=== PATIENT | female | born 2000 | race Native Hawaiian/Other Pacific Islander ===

== ENCOUNTER 2021-11-20 10:29 | Inpatient (IN) | payer SELFPAY ==
[2021-11-20] MEDS ORDERED: LACTATED RINGERS 1,000 ML IV ONE (12:51)
[2021-11-20 13:27] LABS: Basophils % (Auto) 0.2 % (0.0-1.8); Eosinophils # (Auto) 0.1 K/mm3 (0.0-0.4); Eosinophils % (Auto) 0.7 % (0.0-4.3); Hematocrit 35.2 % (30.3-42.9); Hemoglobin 11.1 gm/dl (10.1-14.3); Lymphocytes # (Auto) 1.6 K/mm3 (1.2-5.4); Lymphocytes % (Auto) 22.8 % (13.4-35.0); Mean Corpuscular HGB Conc 31 % (30-34); Mean Corpuscular Volume 82 fl (79-97); Monocytes # (Auto) 0.4 K/mm3 (0.0-0.8); Monocytes % (Auto) 5.9 % (0.0-7.3); Platelet Count 242 K/mm3 (140-440); Red Blood Count 4.28 M/mm3 (3.65-5.03); Red Cell Distribution Width 14.7 % (13.2-15.2)
[2021-11-20] MEDS ORDERED: BICITRA ORAL LIQD 30ML PO ONE (13:55)
[2021-11-20] MEDS ORDERED: METOCLOPRAMIDE 10 MG/2 ML INJ IV ONE (13:55)
[2021-11-20] MEDS ORDERED: FAMOTIDINE 20 MG/2 ML INJ IV ONE (13:55)
[2021-11-20] MEDS ORDERED: LACTATED RINGERS 1,000 ML IV SCH ×2 (14:00→17:30)
[2021-11-20] MEDS ORDERED: OXYTOCIN DRIP 30 UNITS/500 ML BAG IV SCH ×2 (14:00→23:45)
[2021-11-20] MEDS ORDERED: BUPIVACAINE /DEX-WATER 0.75% (2 ML) AMPULE INFILTRATI ONE (17:23)
--- NOTE | 2021-11-20 17:34 | Anesthesia Day of Surgery ---
Anesthesia Day of Surgery - Day of Surgery Patient Examined: Yes Patient H&P Reviewed: Yes Patient is NPO: Yes Beta Blockers: No Cardiac Clearance: No Pulmonary Clearance: No Myles's Test: Negative
--- NOTE | 2021-11-20 17:42 | Anesthesia Consultation ---
Anesthesia Consult and Med Hx Date of service: 11/20/21 - Airway Anesthetic Teeth Evaluation: Poor ROM Head & Neck: Adequate Mental/Hyoid Distance: Adequate Mallampati Class: Class II Intubation Access Assessment: Probably Good - Pulmonary Exam CTA: Yes - Pre-Operative Health Status ASA Pre-Surgery Classification: ASA3 Proposed Anesthetic Plan: Epidural, Spinal - Pulmonary Hx Smoking: No Hx Asthma: No Hx Respiratory Symptoms: No SOB: No COPD: No Home Oxygen Therapy: No Hx Pneumonia: No Hx Sleep Apnea: No - Cardiovascular System Hx Hypertension: No Hx Coronary Artery Disease: No Hx Heart Attack/AMI: No Hx Angina: No Hx Percutaneous Transluminal Coronary Angioplasty (PTCA): No Hx Cardia Arrhythmia: No Hx Pacemaker: No Hx Internal Defibrillator: No Hx Valvular Heart Disease: No Hx Heart Murmur: No Hx Peripheral Vascular Disease: No - Central Nervous System Hx Neuromuscular Disorder: No Hx Seizures: No CVA: No Hx Back Pain: No Hx Psychiatric Problems: No - Gastrointestinal Hx Ulcer: No Hx Gastroesophageal Reflux Disease: Yes - Endocrine Hx Renal Disease: No Hx End Stage Renal Disease: No Hx Cirrhosis: No Hx Liver Disease: No Hx Insulin Dependent Diabetes: No Hx Non-Insulin Dependent Diabetes: No Hx Thyroid Disease: No Hx Hypothyroidism: No Hx Hyperthyroidism: No - Hematic Hx Anemia: No Hx Sickle Cell Disease: No - Other Systems Hx Alcohol Use: No Hx Substance Use: No Hx Cancer: No Hx Obesity: No
[2021-11-20] MEDS ORDERED: ceFAZolin/Water 2 GM/20 ML 2 GM/20 ML SYRINGE IV NR (18:00)
--- NOTE | 2021-11-20 18:18 | History and Physical Report ---
History of Present Illness Date of examination: 11/20/21 Date of admission: 11/20/21 14:47 Chief complaint: low fluid in clinic by u/sound History of present illness: at 37.6wks by LMP c/w U/Sound. care at [facility]. pt seen in clinic today and denies LOF however her u/sound with DAMARIS 4.1cm today and BPP 6/8. labs O positive, antibody neg, rubella immune, VDRL non-reactive, HIV neg and HepBsAg; GC/Chlam negative. Normal 1hrgtt. Past History Past Medical History: no pertinent history Past Surgical History: section (x2) Family/Genetic History: none Social history: no significant social history - Obstetrical History Expected Date of Delivery: 12/05/21 Actual Gestation: 37 Week(s) 6 Day(s) : 3 Hx # Term Pregnancies: 2 Number of Living Children: 2 Medications and Allergies Allergies Allergy/AdvReac Type Severity Reaction Status Date / Time No Known Allergies Allergy Verified 11/20/21 11:04 Active Meds: Active Medications Lactated Ringer's (Lactated Ringers) 1,000 mls @ 2,250 mls/hr IV PREOP COCO Stop: 11/21/21 14:27 Oxytocin/Sodium Chloride (Pitocin/Ns 30 Unit/500ml) 30 units in 500 mls @ 0 mls/hr IV TITR COCO; Protocol Lactated Ringer's (Lactated Ringers) 1,000 mls @ 2,250 mls/hr IV PREOP COCO Stop: 11/21/21 17:57 Cefazolin Sodium (Ancef/Sterile Water 2 Gm/20 Ml) 2 gm in 20 mls @ 80 mls/hr IV PREOP NR; Protocol Stop: 11/20/21 23:59 Review of Systems All systems: negative (oligo on u/s) - Vital Signs Vital signs: Vital Signs Temp Pulse Resp BP Pulse Ox 98.1 F 102 H 18 110/68 99 11/20/21 10:58 11/20/21 10:58 11/20/21 10:58 11/20/21 10:58 11/20/21 10:58 Temp Pulse Resp BP Pulse Ox 99.2 F 96 H 16 115/68 98 11/20/21 17:35 11/20/21 17:42 11/20/21 17:35 11/20/21 17:35 11/20/21 17:42 - Physical Exam Breasts: Positive: deferred Cardiovascular: Regular rate Lungs: Positive: Normal air movement Genitourinary (Female): Positive: normal external genitalia Uterus: Positive: normal size Extremities: Positive: normal - Obstetrical FHR: category 1 Uterine Contraction Monitor Mode: External Uterine Contraction Pattern: Absent Results Result Diagrams: 11/20/21 12:35 Abnormal lab results 11/20/21 Range/Units 12:35 MCH 26 L (28-32) pg Seg Neutrophils % 70.4 H (40.0-70.0) % All other labs normal. Assessment and Plan Term IUP at 37.6wks with Oligohydramnios; H/O C/Section x2 1. Admit to labor and delivery for repeat section 2. Will check ROM plus 3. Anesthesia and NICU notified
[2021-11-20] MEDS ORDERED: ceFAZolin/STERILE WATER 2 GM/20 ML SYRINGE IV ONE (20:44)
[2021-11-20] MEDS ORDERED: PHENYLEPHRINE/NS 1,000 MCG/10 ML SYRINGE (OR USE) IV ONE (21:29)
[2021-11-20] MEDS ORDERED: BUPIVACAINE/PF (0.25%) 2.5 MG/ML 30 ML VIAL INFILTRATI ONE (22:00)
[2021-11-20] MEDS ORDERED: dexAMETHasone 20 MG/5 ML VIAL ONE (22:03)
[2021-11-20] MEDS ORDERED: IBUPROFEN 600 MG TAB PO PRN (23:58)
[2021-11-20] MEDS ORDERED: HYDROCORTISONE 25 MG RECTAL SUPP PR PRN (23:58)
[2021-11-20] MEDS ORDERED: MORPHINE 4 MG/1 ML INJ IV PRN (23:58)
[2021-11-20] MEDS ORDERED: SIMETHICONE 80 MG CHEW TAB PO PRN (23:58)
[2021-11-20] MEDS ORDERED: MAGNESIUM HYDROXIDE (MOM) ORAL LIQD UDC PO PRN (23:58)
[2021-11-20] MEDS ORDERED: ONDANSETRON 4 MG/2 ML INJ IV PRN (23:58)
[2021-11-20] MEDS ORDERED: oxyCODONE /ACETAMINOPHEN 5-325MG TAB PO PRN (23:58)
[2021-11-20] MEDS ORDERED: PROMETHAZINE 25 MG RECT SUPP PR PRN (23:58)
[2021-11-20] MEDS ORDERED: ACETAMINOPHEN 325 MG TAB PO PRN (23:58)
[2021-11-20] MEDS ORDERED: SENNOSIDES 8.6 MG TAB PO PRN (23:58)
[2021-11-20] MEDS ORDERED: LANOLIN/ZINC/DIMETHICONE (LANSINOH) 7 GM TP PRN (23:58)
[2021-11-20] MEDS ORDERED: WITCH HAZEL/ GLYCERIN PAD TP PRN (23:58)
[2021-11-20] MEDS ORDERED: NALOXONE 0.4 MG/1 ML INJ IV PRN (23:58)
--- NOTE | 2021-11-21 00:03 | Procedure Note ---
OB Delivery Note - Delivery Date of Delivery: 11/20/21 Surgeon: ANNABELLE BUTTERFIELD Tank Wagon Driver: MATEO LOPEZ Estimated blood loss: other (802cc) - Section Preop diagnosis: repeat , other (Oligohydramnios) Postop diagnosis: same section procedure: repeat low transverse (midline skin scar per pt choice) Disposition: floor Complications: none Narrative: Date: 11/20/20 Surgeon: Annabelle Butterfield MD Asst: Dr. Lopez Preop Dx: IUP at 37.6wks, previous c/section x2 with midline scar, Oligohydramnios Postop Dx: same Procedure : Repeat Low tranverse c/section thru midline skin scar Anesthesia: spinal/epidural Intake: 2600cc crystalloids Output:200cc EBL: 802cc After the risks, benefits and alternatives of procedure discussed, patient signed consents and was taken to the operating room. Pt was given spinal/epidural anesthesia. After same was adequate, patient was prepped and draped in the usual sterile fashion. Naqvi catheter in place and draining clear urine. Pt was given prophylactic antibiotic per protocol and time out was done Midline ellliptical incision done by Dr. Lopez and previous scar tissue removed. Both side of this incision tented upward and sharp dissection down to the fascia that incised in the midline and extended upwards and downwards to the extent of the previous scar. The peritoneum was entered sharply and same was extended with good visualization of the bladder. The sammie retractor was placed. The bladder flap was created sharply using metzenbaum scissors. Lower uterine segment then entered transversely and amniotic sac entered using allys clamps. Uterine incision extended using bandage scissors. Infant delivered, bulb suctioned, cord clamped and baby handed to waiting pediatricians. Placenta then delivered completely and uterine cavity cleared of all clots and debri. The uterus was not exteriorized and closed in 2 layers using [0-vicryl] suture in a running locked fashion and then an additional layer of imbrication suture. Surgicel powder placed and Excellent hemostasis noted. The gutters were cleared of clots and debri and anterior peritoneum closed using 3-0 vicryl suture. The rectus muscle was included as the midline fascia was closed using 0-PDS suture in a running fashion. The subcutaneous tissue copiously irrigated with normal saline and re-approximated using 3-0 vicryl suture. Excellent hemostasis remains. The skin was reapproximated with interrupted 3-0 vicryl suture then above with continuous suture using 4-0 monocryl in a subcuticular fashion. Dermabond placed above. Sponge, lap, instrument and needle counts x2 were normal. Patient tolerated the procedure we ll and was taken to recovery room stable. Findings: Viable female , APGARS 8/9 and weight 2490g. Normal uterus, tubes and ovaries. - Infant A at 1 minute: 8 at 5 minutes: 9 Infant Gender: Female (wt 2490g; clear amniotic fluid)
--- NOTE | 2021-11-21 00:12 | Progress Note ---
Spinal Anesthesia Block - Spinal Anesthesia Block Start Time: 20:46 Stop Time: 20:49 Performed by:: SOLO HAMM Procedure: Patient is requesting epidural for labor pain. H&P and labs reviewed. Procedure explained, questions answered, consent obtained. Patient placed in sitting position with monitors applied. Timeout performed immediately before start of procedure. Prep/drape in usual sterile fashion. Skin localized 3 mL 1% lidocaine at L[2]-L[3] interspace. 17-gauge Tuohy epidural needle advanced to ENRIQUE with saline at [4] cm. No blood/CSF noted via epidural needle. 25g spinal needle advanced into intrathecal space until clear, free flowing CSF noted. 1.4ml 0.75% hyperbaric bupivacaine + 10mcg Precedex sterile saline injected into intrathecal space. Spinal needle removed and epidural catheter advanced to [10] cm. Negative aspiration for blood and CSF via catheter, negative response to test dose 3 ml 1.5% lidocaine w/ epi. Sterile dressing applied followed by tape reinforcement. Patient tolerated procedure well. No immediate complications noted.
--- NOTE | 2021-11-21 00:14 | Progress Note ---
Regional Anesthesia Block - Regional Anesthesia Block Start Time: 23:50 Stop Time: 23:52 Performed By:: SOLO HAMM Procedure: Patient consented for TAP block for post surgical pain management. Patient identified, monitors placed, and time out performed. TAP identified bilaterally via ultrasound. Skin prepped bilaterally with [chlorhexidine] and [22g stimuplex] needle advanced to the TAP. [Marcaine 0.25% 30ml] injected under ultrasound guidance on the [left] side. [Marcaine 0.25% 30ml] injected under ultrasound guidance on the [right] side. Negative aspiration every 5mL, No change in heart rate or rhythm. Patient tolerated the procedure well. No apparent complications seen.
--- NOTE | 2021-11-21 00:16 | Post Anesthesia Evaluation ---
- Post Anesthesia Evaluation Patient Participated: Yes Airway Patent: Yes Stable Respiratory Function: Yes Nausea/Vomiting: No Temp > 96.8F: Yes Pain Manageable: Yes Adequeate Hydration: Yes Anesthesia Complications: No Block Receding Appropriately: Yes Patient on Ventilator: No
[2021-11-21] MEDS ORDERED: MORPHINE 4 MG/1 ML INJ IV PRN (01:32)
[2021-11-21] MEDS ORDERED: MAGNESIUM HYDROXIDE (MOM) ORAL LIQD UDC PO PRN (01:32)
[2021-11-21] MEDS ORDERED: PROMETHAZINE 25 MG RECT SUPP PR PRN (01:32)
[2021-11-21] MEDS ORDERED: LANOLIN/ZINC/DIMETHICONE (LANSINOH) 7 GM TP PRN (01:32)
[2021-11-21] MEDS ORDERED: WITCH HAZEL/ GLYCERIN PAD TP PRN (01:32)
[2021-11-21] MEDS ORDERED: HYDROCORTISONE 25 MG RECTAL SUPP PR PRN (01:32)
[2021-11-21] MEDS ORDERED: ONDANSETRON 4 MG/2 ML INJ IV PRN (01:32)
[2021-11-21] MEDS ORDERED: SIMETHICONE 80 MG CHEW TAB PO PRN (01:32)
[2021-11-21] MEDS ORDERED: SENNOSIDES 8.6 MG TAB PO PRN (01:32)
[2021-11-21] MEDS ORDERED: NALOXONE 0.4 MG/1 ML INJ IV PRN (01:32)
[2021-11-21] MEDS ORDERED: OXYTOCIN DRIP 30 UNITS/500 ML BAG IV SCH (01:32)
[2021-11-21] MEDS ORDERED: IBUPROFEN 600 MG TAB PO PRN (01:32)
[2021-11-21] MEDS: oxyCODONE /ACETAMINOPHEN 5-325MG TAB PO PRN ×4 (03:53→22:52)
[2021-11-21] MEDS ORDERED: PRENATAL VIT27-FE FUMARATE-FOLIC ACID VIT TAB PO SCH (10:00)
[2021-11-21] MEDS ORDERED: FERROUS SULFATE 325 MG TAB PO SCH (10:00)
[2021-11-21] MEDS: FERROUS SULFATE 325 MG TAB PO SCH (10:38)
[2021-11-21] MEDS: PRENATAL VIT27-FE FUMARATE-FOLIC ACID VIT TAB PO SCH (10:38)
--- NOTE | 2021-11-21 10:52 | Progress Note ---
Assessment and Plan A: /postop day 1 S/P repeat section. P: Continue routine /postop care. Coronavirus test pending. Encouraged patient to ambulate today. Subjective - Subjective Date of service: 11/21/21 Principal diagnosis: /postop day 1 S/P repeat C/S Interval history: Has not been out of bed yet. Naqvi catheter in place draining well. No flatus yet. Patient reports: no nauseated : doing well Objective - Vital Signs Latest vital signs: Vital Signs Temp Pulse Resp BP BP Pulse Ox Pulse Ox 11/21/21 08:01 97.7 F 54 L 17 113/68 98 11/21/21 03:54 98.5 F 59 L 18 115/69 97 11/21/21 01:10 98.3 F 70 20 114/68 98 98 11/21/21 01:00 99.1 F 80 14 115/69 97 11/21/21 00:45 74 14 124/72 11/21/21 00:30 74 14 124/72 11/21/21 00:22 81 98 11/21/21 00:17 78 100 11/21/21 00:15 75 14 116/70 11/21/21 00:13 78 118/74 11/21/21 00:12 73 100 11/21/21 00:10 78 14 114/78 11/21/21 00:05 82 16 128/74 11/21/21 00:00 99.1 F 76 14 132/74 11/20/21 18:23 89 98 11/20/21 17:42 96 H 98 11/20/21 17:37 82 99 11/20/21 17:35 99.2 F 82 16 115/68 98 11/20/21 17:32 85 99 11/20/21 17:30 93 H 115/68 11/20/21 17:27 88 98 11/20/21 17:22 77 98 11/20/21 17:17 80 97 11/20/21 17:12 71 98 11/20/21 17:07 82 99 11/20/21 17:02 82 98 11/20/21 16:57 79 97 11/20/21 16:52 77 98 11/20/21 16:47 70 99 11/20/21 16:42 77 99 11/20/21 16:37 80 98 11/20/21 16:32 77 98 11/20/21 16:27 76 98 11/20/21 16:22 78 97 11/20/21 16:17 77 98 11/20/21 16:12 88 98 11/20/21 16:07 85 98 11/20/21 16:02 80 98 11/20/21 15:53 85 97 11/20/21 15:48 78 97 11/20/21 15:43 82 99 11/20/21 15:38 73 98 11/20/21 15:33 71 99 11/20/21 15:28 77 98 11/20/21 15:23 78 98 11/20/21 15:18 74 98 11/20/21 15:13 75 89 11/20/21 15:08 78 100 11/20/21 15:04 99 11/20/21 15:03 81 99 11/20/21 14:58 82 87 11/20/21 14:52 69 98 11/20/21 14:47 77 99 11/20/21 14:42 91 H 97 11/20/21 14:37 71 97 11/20/21 14:32 86 99 11/20/21 14:27 88 98 11/20/21 14:22 74 97 11/20/21 14:17 71 98 11/20/21 14:12 82 97 11/20/21 14:07 96 H 97 11/20/21 14:02 88 98 11/20/21 13:57 69 98 11/20/21 13:52 74 98 11/20/21 13:47 77 98 11/20/21 13:43 91 H 94 11/20/21 13:42 98 11/20/21 13:37 79 98 11/20/21 12:08 92 H 99 11/20/21 12:03 83 98 11/20/21 11:58 85 99 11/20/21 11:53 82 98 11/20/21 11:48 86 99 11/20/21 11:43 94 H 98 11/20/21 11:38 81 98 11/20/21 11:33 95 H 98 11/20/21 11:28 84 98 11/20/21 11:23 96 H 98 11/20/21 11:18 92 H 99 11/20/21 11:13 92 H 98 11/20/21 11:08 91 H 99 11/20/21 11:03 93 H 98 11/20/21 10:58 98.1 F 96 H 18 110/68 110/68 99 Intake and Output 11/20/21 11/21/21 11/21/21 23:59 07:59 15:59 Intake Total 2600 240 240 Output Total 200 300 Balance 2400 -60 240 Intake: IV 2600 Oral 240 Intake, Free Water 240 Output: Urine 200 300 Indwelling Catheter 300 Other: Total, Intake Amount 240 Total, Output Amount 300 # Voids Indwelling Catheter 1 - Exam Cardiovascular: Present: Regular rate Lungs: Present: Clear to auscultation Abdomen: Present: normal appearance, soft, other (+ bowel sounds). Absent: distention, tenderness, guarding, rigidity Uterus: Present: normal, firm, fundal height below umbilicus. Absent: bogginess, tenderness Extremities: Absent: tenderness, edema Incision: Present: dry, intact - Labs Labs: Abnormal lab results 11/20/21 Range/Units 12:35 MCH 26 L (28-32) pg Seg Neutrophils % 70.4 H (40.0-70.0) %
[2021-11-21 11:59] LABS: Hematocrit 32.4 % (30.3-42.9); Hemoglobin 10.1 gm/dl (10.1-14.3)
[2021-11-22] MEDS: oxyCODONE /ACETAMINOPHEN 5-325MG TAB PO PRN ×2 (06:01→11:02)
[2021-11-22] MEDS: PRENATAL VIT27-FE FUMARATE-FOLIC ACID VIT TAB PO SCH (10:58)
[2021-11-22] MEDS: FERROUS SULFATE 325 MG TAB PO SCH (10:59)
--- NOTE | 2021-11-22 11:30 | Progress Note ---
Subjective - Subjective Date of service: 11/22/21 Principal diagnosis: /postop day 2 S/P repeat C/S Interval history: PE benign incision c/d/i continue routine postop care Enrrique Oliva MD Patient reports: appetite normal, voiding normally, pain well controlled, ambulating normally : doing well Objective - Vital Signs Latest vital signs: Vital Signs Temp Pulse Resp BP BP Pulse Ox Pulse Ox 11/22/21 09:13 97.6 F 89 20 104/71 99 11/22/21 05:46 98.1 F 62 18 125/73 99 11/22/21 00:19 98.0 F 64 18 117/66 100 11/21/21 22:00 97 11/21/21 20:51 98.1 F 66 18 100/60 100/60 98 11/21/21 20:05 98 11/21/21 17:14 97.7 F 62 19 105/61 96 11/21/21 13:28 97.8 F 63 17 108/69 96 Intake and Output 11/21/21 11/22/21 11/22/21 23:59 07:59 15:59 Intake Total 120 240 Output Total 1500 500 Balance -1380 -260 Intake: Oral 120 240 Output: Urine 1500 500 Indwelling Catheter 600 Void 900 500 Other: Total, Intake Amount 120 120 Total, Output Amount 600 200 # Voids Indwelling Catheter 1 Void 3 1 1 - Labs Labs: Abnormal lab results 11/21/21 Range/Units Unknown Coronavirus (PCR) Positive A (Negative)
[2021-11-22] MEDS: IBUPROFEN 800 MG TAB PO PRN (18:14)
[2021-11-23] MEDS: IBUPROFEN 800 MG TAB PO PRN ×2 (01:09→10:20)
[2021-11-23] MEDS: oxyCODONE /ACETAMINOPHEN 5-325MG TAB PO PRN (05:34)
--- NOTE | 2021-11-23 10:17 | Progress Note ---
Assessment and Plan A: /postop day 3 S/P repeat section. Anemia. Coronavirus positive (asymptomatic). P: Discharge patient home today. Discussed with patient /postop discharge instructions and warning signs. Care of incision and activity restrictions discussed with patient. Advised patient to continue taking her vitamin and iron supplement at home. Advised patient to avoid intercourse, lifting, housework, stair climbing, and driving. Advised patient to follow up at [facility] in 1 week. Advised patient to self isolate at home for 2 weeks to avoid spreading coronavirus and to return promptly if any symptoms of coronavirus or any other problems. Patient voiced understanding of all instructions. Subjective - Subjective Date of service: 11/23/21 Principal diagnosis: /postop day 3 S/P repeat C/S Interval history: Doing well. No complaints. Desires discharge home today. Patient reports: appetite normal, voiding normally, pain well controlled, flatus, ambulating normally, no dizzy ambulation, no nauseated [place]: doing well Objective - Vital Signs Latest vital signs: Vital Signs Temp Pulse Resp BP Pulse Ox Pulse Ox 11/23/21 08:00 97.9 F 67 16 108/63 97 11/23/21 05:30 97 11/23/21 03:35 97 11/23/21 02:05 97 11/23/21 00:38 98.7 F 67 18 116/76 99 11/22/21 23:40 98 11/22/21 21:20 97 11/22/21 19:55 97 Intake and Output 11/22/21 11/23/21 11/23/21 23:59 07:59 15:59 Intake Total 240 360 Balance 240 360 Intake: Oral 240 360 Other: Total, Intake Amount 120 120 # Voids Void 1 1 - Exam Cardiovascular: Present: Regular rate, No murmurs Lungs: Present: Clear to auscultation Abdomen: Present: normal appearance, soft, normal bowel sounds. Absent: distention, tenderness, guarding, rigidity Uterus: Present: normal, firm, fundal height below umbilicus. Absent: bogginess, tenderness Extremities: Absent: tenderness, edema Incision: Present: dry, intact
--- NOTE | 2021-11-23 10:32 | Discharge Summary ---
Providers - Providers Date of Admission: 11/20/21 14:47 Date of discharge: 11/23/21 Attending physician: CB MARTINS Primary care physician: WILBUR PARK MD Hospitalization Delivery: Procedure: repeat low transverse Incision: normal, dry, intact Other procedures: none complications: none Discharge diagnosis: IUP at term delivered baby: female Pertinent studies: Labs Hospital course: Stable hospital course Condition at discharge: Good Disposition: 01 HOME / SELF CARE / HOMELESS - Discharge Diagnoses (1) Term delivered Status: Acute (2) Anemia Status: Acute Plan - Discharge Medications Prescriptions: Ibuprofen [Motrin] 800 mg PO Q8HR PRN 21 Days #40 tablet PRN Reason: Pain, Moderate (4-6) oxyCODONE /ACETAMINOPHEN [Percocet 5/325] 1 tab PO Q4HR 21 Days #30 tab - Provider Discharge Summary Activity: routine, no sex for 6 weeks, no heavy lifting 4 weeks, no strenuous exercise Diet: routine Instructions: routine Additional instructions: Continue taking your vitamin and iron supplement at home. Follow up at [facility] in 1 week. Self isolate at home for 2 weeks due to positive coronavirus. Call your doctor immediately for: * Fever > 100.5 * Heavy vaginal bleeding ( >1 pad per hour) * Severe persistent headache * Shortness of breath * Reddened, hot, painful area to leg or breast * Drainage or odor from incision. * Keep incision clean and dry at all times and follow doctor's instructions regarding bathing/showering - Follow up plan Follow up: PRIMARY CAREMD [Primary Care Provider] - 7 Days
[2021-11-23] MEDS: PRENATAL VIT27-FE FUMARATE-FOLIC ACID VIT TAB PO SCH (11:00)
[2021-11-23] MEDS: FERROUS SULFATE 325 MG TAB PO SCH (11:00)
[2021-11-23 13:00] VITALS: BP 111/63
== END 2021-11-23 15:55 | disposition home or self-care (01) | DRG 786 ==
LOC: TRG 10:29 → APU 10:40 → TRG 12:51 → APU 14:47 → UNDOADMIN 14:47 → OB 11-21 01:22
PROVIDERS: ADMIT Obstetrics & Gynecology; ATTEND Obstetrics & Gynecology
PROC: 10D00Z1 Extraction of Products of Conception, Low, Open Approach (ICD-10-PCS; principal; 2021-11-21)
PROC: 3E0T3BZ Introduction of Anesthetic Agent into Peripheral Nerves and Plexi, Percutaneous Approach (ICD-10-PCS; 2021-11-21)
DX: O41.03X0 Oligohydramnios, third trimester, not applicable or unspecified (principal); U07.1 COVID-19; O98.52 Other viral diseases complicating childbirth; Z3A.37 37 weeks gestation of pregnancy; Z37.0 Single live birth; O90.81 Anemia of the puerperium; O34.211 Maternal care for low transverse scar from previous cesarean delivery
CPT/HCPCS: 36415; 59025; 85014; 85018; 85025; 86850; 86900; 86901; 88307; G0378; J0630; J3490; J7121; J0690; J1100; J2270; J2370; J2765; J7120; U0003